=== PATIENT | male | born 1975 | race Caucasian/White ===

== ENCOUNTER 2021-03-13 20:20 | Emergency (ER) | payer MEDICAID, OTHER ==
[~2021-03-13] VITALS: Ht 172.7 cm; Wt 109.0 kg
[2021-03-14] MEDS ORDERED: DEXAMETHASONE 10 MG/ML VIAL IV ONE (01:00)
[2021-03-14] MEDS ORDERED: DIPHENHYDRAMINE 50MG/ML VIAL IV ONE (01:00)
[2021-03-14] MEDS ORDERED: FAMOTIDINE 20MG/2ML VIAL IV ONE (01:00)
[2021-03-14] MEDS ORDERED: ONDANSETRON HCL 4MG/2ML INJ IV ONE (01:30)
[2021-03-14] MEDS ORDERED: FAMO40TA70 MT (04:19)
[2021-03-14] MEDS ORDERED: P20 MT (04:19)
[2021-03-14 04:39] VITALS: BP 128/78
== END 2021-03-14 04:40 | disposition home or self-care (01) ==
LOC: ER 20:20
DX: T78.40XA Allergy, unspecified, initial encounter (principal); X58.XXXA Exposure to other specified factors, initial encounter; Z91.014 Allergy to mammalian meats
CPT/HCPCS: 70360; 96374; 96375; 99284; J1100; J1200; J2405; J3490